=== PATIENT | male | born 1960 | race Caucasian/White ===

== ENCOUNTER → 2016-12-26 | Outpatient (CLI) | payer BC ==
[~2016-12-26] MED LIST: ASPIRIN E.C. 8181 MG PO; ATORVASTATIN CA20 MG PO; CLOTRIMAZOLE AN TP; LANSOPRAZOLE30 M2 PO
== END ==
LOC: LAB 07:06
DX: E78.00 Pure hypercholesterolemia, unspecified (principal); E08.22 Diabetes mellitus due to underlying condition with diabetic chronic kidney disease; Z12.5 Encounter for screening for malignant neoplasm of prostate

== ENCOUNTER → 2017-01-02 | Outpatient (CLI) | payer BC ==
[2017-01-02 16:45] VITALS: BP 145/91
== END ==
LOC: AMSURD 16:34
DX: Z00.00 Encounter for general adult medical examination without abnormal findings (principal); I10 Essential (primary) hypertension

== ENCOUNTER → 2018-01-23 | Outpatient (CLI) | payer BC ==
[2017-01-02 16:45] VITALS: BP 145/91
[2018-01-23 09:37] LABS: ALBUMIN 4.6 g/dL (3.5-5.0); BUN/CREATININE RATIO 20.7 (6.0-26.0); CALCIUM 9.6 mg/dL (8.4-10.2); POTASSIUM 4.6 mmol/L (3.6-5.0); TOTAL BILIRUBIN 0.5 mg/dL (0.2-1.3); TOTAL PROTEIN 8.2 g/dL (6.3-8.2)
== END ==
LOC: LAB 09:05
PROVIDERS: Family Medicine
DX: Z12.5 Encounter for screening for malignant neoplasm of prostate (principal); E78.00 Pure hypercholesterolemia, unspecified

== ENCOUNTER → 2018-04-07 | Day surgery (SDC) | payer BC ==
[2017-01-02 16:45] VITALS: BP 145/91
== END | disposition home or self-care (01) ==
LOC: MSO 09:50
DX: K21.9 Gastro-esophageal reflux disease without esophagitis (principal); K22.70 Barrett's esophagus without dysplasia; K44.9 Diaphragmatic hernia without obstruction or gangrene; Z79.899 Other long term (current) drug therapy; Z12.11 Encounter for screening for malignant neoplasm of colon; Z79.82 Long term (current) use of aspirin; F32.9 Major depressive disorder, single episode, unspecified
CPT/HCPCS: 00813; A4649; J2704; J3010; J7120

== ENCOUNTER → 2019-05-26 | Outpatient (CLI) | payer BC ==
[2017-01-02 16:45] VITALS: BP 145/91
[2019-05-26 07:32] LABS: ALBUMIN 4.4 g/dL (3.5-5.0); POTASSIUM 4.1 mmol/L (3.5-5.1)
[2019-05-26 07:33] LABS: CALCIUM 9.4 mg/dL (8.3-10.5)
[2019-05-26 07:35] LABS: TOTAL PROTEIN 7.1 g/dL (6.4-8.3)
[2019-05-26 07:37] LABS: TOTAL BILIRUBIN 0.6 mg/dL (0.2-1.2)
== END ==
LOC: LAB 07:00 → EDSTATUS 07:01
PROVIDERS: Family Medicine
DX: Z12.5 Encounter for screening for malignant neoplasm of prostate (principal); R73.9 Hyperglycemia, unspecified; E78.00 Pure hypercholesterolemia, unspecified

== ENCOUNTER → 2019-11-25 | Outpatient (CLI) | payer BC ==
[2017-01-02 16:45] VITALS: BP 145/91
== END ==
LOC: RAD 16:39
DX: J18.9 Pneumonia, unspecified organism (principal); M95.4 Acquired deformity of chest and rib; J32.9 Chronic sinusitis, unspecified

== ENCOUNTER → 2020-10-10 | Outpatient (CLI) | payer BC ==
[2017-01-02 16:45] VITALS: BP 145/91
[2020-10-10 08:37] LABS: ALBUMIN 4.4 g/dL (3.5-5.0); POTASSIUM 4.8 mmol/L (3.5-5.1)
[2020-10-10 08:38] LABS: CALCIUM 9.2 mg/dL (8.3-10.5)
[2020-10-10 08:39] LABS: TOTAL PROTEIN 6.9 g/dL (6.4-8.3)
[2020-10-10 08:41] LABS: TOTAL BILIRUBIN 0.7 mg/dL (0.2-1.2)
== END ==
LOC: LAB 08:10
PROVIDERS: Family Medicine
DX: Z12.5 Encounter for screening for malignant neoplasm of prostate (principal); E78.5 Hyperlipidemia, unspecified; R73.9 Hyperglycemia, unspecified

== ENCOUNTER → 2021-06-14 | Day surgery (SDC) | payer BC | END | disposition home or self-care (01) | LOC: MSO 07:17 | DX: K22.70 Barrett's esophagus without dysplasia (principal); K21.9 Gastro-esophageal reflux disease without esophagitis; K44.9 Diaphragmatic hernia without obstruction or gangrene; K25.9 Gastric ulcer, unspecified as acute or chronic, without hemorrhage or perforation; C18.9 Malignant neoplasm of colon, unspecified; E78.00 Pure hypercholesterolemia, unspecified; E66.9 Obesity, unspecified; Z87.891 Personal history of nicotine dependence; Z79.82 Long term (current) use of aspirin | CPT/HCPCS: 00731; J2704; J7120 ==

== ENCOUNTER → 2021-12-19 | Outpatient (CLI) | payer BC ==
[2021-12-19 09:37] LABS: ALBUMIN 4.7 g/dL (3.5-5.0)
[2021-12-19 09:39] LABS: TOTAL PROTEIN 7.3 g/dL (6.4-8.3)
[2021-12-19 09:41] LABS: TOTAL BILIRUBIN 0.8 mg/dL (0.2-1.2)
[2021-12-19 09:45] LABS: DIRECT BILIRUBIN 0.3 mg/dL (0.0-0.5)
== END ==
LOC: LAB 08:47
PROVIDERS: Family Medicine
DX: Z12.5 Encounter for screening for malignant neoplasm of prostate (principal); E78.00 Pure hypercholesterolemia, unspecified

== ENCOUNTER → 2022-02-01 | Outpatient (CLI) | payer BC ==
[2022-02-01 09:32] LABS: POTASSIUM 4.5 mmol/L (3.5-5.1)
[2022-02-01 09:33] LABS: CALCIUM 9.3 mg/dL (8.3-10.5)
== END ==
LOC: LAB 08:57
PROVIDERS: Family Medicine
DX: Z00.00 Encounter for general adult medical examination without abnormal findings (principal); Z12.5 Encounter for screening for malignant neoplasm of prostate; K22.70 Barrett's esophagus without dysplasia; E78.00 Pure hypercholesterolemia, unspecified; R97.20 Elevated prostate specific antigen [PSA]; Z83.3 Family history of diabetes mellitus

== ENCOUNTER → 2024-02-06 | Outpatient (CLI) | payer BC ==
[2024-03-24 12:29] LABS: CREATININE OTHER SOURCE 163.8
[2024-03-24 13:09] LABS: CALCIUM 9.5 mg/dL (8.3-10.5)
== END ==
LOC: LAB 08:00
PROVIDERS: Family Medicine
DX: I10 Essential (primary) hypertension (principal); R97.20 Elevated prostate specific antigen [PSA]

== ENCOUNTER → 2024-05-01 | Outpatient (CLI) | payer BC | LOC: LAB 09:18 | DX: E78.2 Mixed hyperlipidemia (principal) ==

== ENCOUNTER → 2024-08-27 | Outpatient (CLI) | payer BC | LOC: LAB 07:06 | DX: R97.20 Elevated prostate specific antigen [PSA] (principal) ==